=== PATIENT | female | born 1995 | race African-American/Black ===

== ENCOUNTER 2020-07-17 18:34 | Emergency (ER) | payer OTHER ==
[2020-07-17 18:45] VITALS: BMI 26.5
[2020-07-17 20:24] LABS: URINE APPEARANCE CLEAR; URINE BILIRUBIN NEGATIVE (NEGATIVE); URINE COLOR YELLOW; URINE GLUCOSE (UA) NEGATIVE (NEGATIVE); URINE KETONE NEGATIVE (NEGATIVE); URINE LEUK ESTERASE NEGATIVE (NEGATIVE); URINE NITRITE NEGATIVE (NEGATIVE); URINE PROTEIN NEGATIVE (NEGATIVE); URINE UROBILINOGEN 0.2 mg/dL (0.2-1.0)
[2020-07-17 20:25] LABS: BASO % 0.6 % (0-2.0); EOS % 1.4 % (0-4.5); HEMATOCRIT 38.8 % (32.4-45.2); HEMOGLOBIN 13.2 GM/dL (10.7-15.3); LYMPH % 26.9 % (8-40); MCH 31.7 pg (25.7-33.7); MCHC 33.9 g/dl (32.0-36.0); MEAN CELL VOLUME 93.4 fl (80-96); MEAN PLT VOLUME 8.1 fl (7.5-11.1); MONO % 6.3 % (3.8-10.2); NEUT % 64.8 % (42.8-82.8); PLATELET COUNT 285 K/MM3 (134-434); RBC 4.16 M/mm3 (3.60-5.2); WHITE BLOOD COUNT 8.2 K/mm3 (4.0-10.0)
[2020-07-17 20:43] LABS: POTASSIUM 3.8 mmol/L (3.5-5.1)
[2020-07-17 20:47] LABS: BLOOD UREA NITROGEN 14.8 mg/dL (7-18)
[2020-07-17 20:49] LABS: CREATININE 0.8 mg/dL (0.55-1.3)
[2020-07-17 20:50] LABS: BILIRUBIN,TOTAL 0.2 mg/dL (0.2-1); TOT PROT 7.2 g/dl (6.4-8.2)
[2020-07-17 22:00] VITALS: BP 110/72; PULSE 75; TEMP 98.2
== END 2020-07-17 21:58 | disposition home or self-care (01) ==
LOC: JER 18:34
DX: O26.851 Spotting complicating pregnancy, first trimester (principal); Z3A.08 8 weeks gestation of pregnancy
CPT/HCPCS: 36415; 76817-TC; 80053; 81003; 84702; 85025; 86850; 86900; 86901; 87086; 99284-25